=== PATIENT | female | born 1975 | race Caucasian/White ===

== ENCOUNTER 2021-07-26 10:05 | Outpatient (CLI) | payer BC ==
[2021-07-26 12:25] LABS: Hemoglobin 14.2 g/dL (12.0-15.5); Mean Corpuscular HGB CONC 32.6 g/dL (32.0-36.0); Mean Corpuscular Hemoglobin 31.8 pg (27.0-33.0); Mean Corpuscular Volume 97.5 fl (81.6-98.3); Mean Platelet Volume 9.8 fl (7.4-10.4); Platelet Count 345 10x3/uL (150-450); RBC Distribution Width 12.9 % (11.5-14.5); Red Blood Cell (RBC) Count 4.46 10x6/uL (3.90-5.03)
[2021-07-26 12:40] LABS: Anion Gap 18 mmol/L (10-20); BUN (Urea Nitrogen) 12 mg/dL (7.0-18.7); Calc. Creatinine Clearance 0 mL/min (70-130); Calcium 10.6 mg/dL (7.8-10.44); Carbon Dioxide 25 mmol/L (22-29); Chloride 105 mmol/L (98-107); Glucose 83 mg/dL (70-105); Potassium 4.4 mmol/L (3.5-5.1); Sodium 144 mmol/L (136-145)
[2021-07-27 16:21] LABS: SARS-CoV-2 PCR by NAA Indeterminate (NotDetected)
== END 2021-07-26 10:06 | disposition home or self-care (01) ==
LOC: LABBT 10:05
PROVIDERS: ATTEND Otolaryngology Plastic Surgery within the Head & Neck
DX: Z01.818 Encounter for other preprocedural examination (principal); J32.9 Chronic sinusitis, unspecified; J34.3 Hypertrophy of nasal turbinates; J34.2 Deviated nasal septum; J32.0 Chronic maxillary sinusitis; J32.1 Chronic frontal sinusitis; Z20.822 Contact with and (suspected) exposure to COVID-19
CPT/HCPCS: 80048; 93005; 93010; U0003; U0005

== ENCOUNTER 2021-07-31 06:34 | Day surgery (SDC) | payer BC ==
[2021-07-30 10:17] VITALS: BMI 28.6
[2021-07-31] MEDS ORDERED: AFRIN NASAL MIST 15 ML BOT ONE ×2 (06:54→08:03)
[2021-07-31] MEDS ORDERED: Lidocaine 1% w/Epinephrine 1:100K 30 ML VIAL ONE (08:03)
[2021-07-31] MEDS ORDERED: Fentanyl 100 MCG/2 ML VIAL ONE ×3 (08:08→10:23)
[2021-07-31] MEDS ORDERED: Ondansetron PF 4 MG/2 ML Vial ONE (08:16)
[2021-07-31] MEDS ORDERED: PROPOFOL 200 MG/20 ML VIAL ONE (08:16)
[2021-07-31] MEDS ORDERED: Lidocaine 1% PF 5 ML VIAL ONE (08:16)
[2021-07-31] MEDS ORDERED: Succinylcholine 200 MG/10 ml SYRINGE FS ONE (08:16)
[2021-07-31] MEDS ORDERED: Rocuronium Bromide 10 MG/ML (10ML VIAL) ONE (08:16)
[2021-07-31] MEDS ORDERED: Dexamethasone 20 MG/5 ML VIAL ONE (08:16)
[2021-07-31] MEDS ORDERED: Acetaminophen 500 MG TAB ONE (11:07)
== END 2021-07-31 12:21 | disposition home or self-care (01) ==
LOC: SDC 06:34
PROVIDERS: ATTEND Otolaryngology Plastic Surgery within the Head & Neck
PROC: 09BR8ZZ Excision of Left Maxillary Sinus, Via Natural or Artificial Opening Endoscopic (ICD-10-PCS; principal; 2021-07-31)
PROC: 09TV8ZZ Resection of Left Ethmoid Sinus, Via Natural or Artificial Opening Endoscopic (ICD-10-PCS; principal; 2021-07-31)
PROC: 09SM0ZZ Reposition Nasal Septum, Open Approach (ICD-10-PCS; principal; 2021-07-31)
PROC: 09BW8ZZ Excision of Right Sphenoid Sinus, Via Natural or Artificial Opening Endoscopic (ICD-10-PCS; principal; 2021-07-31)
PROC: 09BQ8ZZ Excision of Right Maxillary Sinus, Via Natural or Artificial Opening Endoscopic (ICD-10-PCS; principal; 2021-07-31)
PROC: 09TU8ZZ Resection of Right Ethmoid Sinus, Via Natural or Artificial Opening Endoscopic (ICD-10-PCS; principal; 2021-07-31)
PROC: 09BS8ZZ Excision of Right Frontal Sinus, Via Natural or Artificial Opening Endoscopic (ICD-10-PCS; principal; 2021-07-31)
PROC: 09BX8ZZ Excision of Left Sphenoid Sinus, Via Natural or Artificial Opening Endoscopic (ICD-10-PCS; principal; 2021-07-31)
PROC: 09TL0ZZ Resection of Nasal Turbinate, Open Approach (ICD-10-PCS; principal; 2021-07-31)
PROC: 09BT8ZZ Excision of Left Frontal Sinus, Via Natural or Artificial Opening Endoscopic (ICD-10-PCS; principal; 2021-07-31)
PROC: 8E09XBZ Computer Assisted Procedure of Head and Neck Region (ICD-10-PCS; principal; 2021-07-31)
DX: J32.4 Chronic pansinusitis (principal); J30.89 Other allergic rhinitis; B48.8 Other specified mycoses; J33.8 Other polyp of sinus; J34.2 Deviated nasal septum; J34.3 Hypertrophy of nasal turbinates; K21.9 Gastro-esophageal reflux disease without esophagitis; E03.9 Hypothyroidism, unspecified; Z79.899 Other long term (current) drug therapy; Z88.5 Allergy status to narcotic agent; Z88.6 Allergy status to analgesic agent
CPT/HCPCS: 87070; 87077; 87186; 87205; J1100; J2405; J2704; J3010